=== PATIENT | female | born 1965 | race African-American/Black ===

== ENCOUNTER 2016-12-15 12:01 | Emergency (ER) | payer BC ==
[~2016-12-15] VITALS: Ht 162.6 cm; Wt 52.2 kg
--- NOTE | 2016-12-15 15:21 | PHYS DOC ---
Past Medical History Past Medical History: No Pertinent History Past Surgical History: No Surgical History Additional Information: 2-3 Black & Milds/day. Alcohol Use: None Drug Use: None Adult General Chief Complaint Chief Complaint: FLANK PAIN HPI HPI Patient is a 51 year old female who presents emergency Department today with complaint of nonradiating, left mid back pain that began yesterday. 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 She denies any distinct episode of injury. Patient reports that lifting and twisting her upper body increases the pain. She states that she has no pain when she is at rest. Patient denies history of musculoskeletal disease. Patient denies dysuria or hematuria. She reports that she has had some increasing urinary frequency. She denies fevers, chills, nausea or vomiting. She denies abdominal or pelvic pain. Review of Systems Review of Systems Constitutional: Denies fever or chills [] Eyes: Denies change in visual acuity, redness, or eye pain [] HENT: Denies nasal congestion or sore throat [] Respiratory: Denies cough or shortness of breath [] Cardiovascular: No additional information not addressed in HPI [] GI: Denies abdominal pain, nausea, vomiting, bloody stools or diarrhea [] : Denies dysuria or hematuria [] Musculoskeletal: Denies back pain or joint pain [] Integument: Denies rash or skin lesions [] Neurologic: Denies headache, focal weakness or sensory changes [] Endocrine: Denies polyuria or polydipsia [] Current Medications Current Medications Current Medications Medications (Trade) Dose Ordered [facility] Start Time Stop Time Status Last Admin Dose Admin Ketorolac Tromethamine (Toradol Im) 60 mg 1X ONCE 12/15/16 15:30 12/15/16 15:31 PR Allergies Allergies Allergies Coded Allergies Type Severity Reaction Last Updated Verified No Known Drug Allergies 08/03/14 No Physical Exam Physical Exam Constitutional: Well developed, well nourished, no acute distress, non-toxic appearance. [] HENT: Normocephalic, atraumatic, bilateral external ears normal, oropharynx moist, no oral exudates, nose normal. [] Eyes: PERRLA, EOMI, conjunctiva normal, no discharge. [] Neck: Normal range of motion, no tenderness, supple, no stridor. [] Cardiovascular:Heart rate regular rhythm, no murmur [] Lungs & Thorax: Bilateral breath sounds clear to auscultation [] Abdomen: Bowel sounds normal, soft, no tenderness, no masses, no pulsatile masses. [] Skin: Warm, dry, no erythema, no rash. Back: Patient's back is normal in appearance. There is no CVA tenderness. There are no skin lesions. There is tenderness to palpation to the left lateral mid back at the level of T10-L1 without any palpable defect, deformity or spasm. There is no midline tenderness. Extremities: No tenderness, no cyanosis, no clubbing, ROM intact, no edema. [] Neurologic: Alert and oriented X 3, normal motor function, normal sensory function, no focal deficits noted. [] Psychologic: Affect normal, judgement normal, mood normal. [] Current Patient Data Vital Signs Vital Signs Date Time Temp Pulse Resp B/P Pulse Ox O2 Delivery O2 Flow Rate FiO2 12/15/16 13:40 98.3 79 20 100 Room Air 98.3 Lab Values Laboratory Tests Test 12/15/16 13:30 Urine Collection Type Void Urine Color Yellow Urine Clarity Clear Urine pH 6.0 Urine Specific [place] 1.025 Urine Protein Negativemg/dL (NEG-TRACE) Urine Glucose (UA) Negativemg/dL (NEG) Urine Ketones (Stick) Negativemg/dL (NEG) Urine Blood Negative (NEG) Urine Nitrite Negative (NEG) Urine Bilirubin Negative (NEG) Urine Urobilinogen Dipstick 1.0mg/dL (0.2 mg/dL) Urine Leukocyte Esterase Negative (NEG) Urine RBC 0/HPF (0-2) Urine WBC Occ/HPF (0-4) Urine Squamous Epithelial Cells Few/LPF Urine Bacteria Few/HPF (0-FEW) Urine Mucus Marked/LPF EKG EKG [] Radiology/Procedures Radiology/Procedures [] Course & Med Decision Making Course & Med Decision Making Pertinent Labs and Imaging studies reviewed. (See chart for details) [] Dragon Disclaimer Dragon Disclaimer This electronic medical record was generated, in whole or in part, using a voice recognition dictation system. Departure Departure Impression: Primary Impression: Thoracic myofascial strain Disposition: HOME, SELF-CARE Condition: GOOD Referrals: STANLEY KELLER MD (PCP) Patient Instructions: Thoracic Strain, [id number] Additional Instructions: 1. Your urine test today shows no evidence of infection or blood in your urine. 2. Review the discharge paperwork for home care and reasons to return the emergency department. 3. Take the medication as prescribed. 4. Follow-up with your primary care doctor within 5-7 days. Scripts Orphenadrine Citrate 100 Mg Tablet.er100 Mg PO every 12 hours muscle relaxer # 14 Prov:HERMELINDA TANG 12/15/16 Hydrocodone/Apap 5-325 ([place] 5-325 Tablet)1 Each Tablet1 Tab PO PRN Q6HRS PRN PAIN #10 TAB Prov:HERMELINDA TANG 12/15/16 HERMELINDA TANG Dec 15, 2016 15:20
[2016-12-15 15:29] LABS: BILIRUBIN,URINE NEGATIVE (NEG); GLUCOSE,URINE NEGATIVE (NEG); NITRITE,URINE NEGATIVE (NEG); PROTEIN,URINE NEGATIVE (NEG-TRACE)
[2016-12-15] MEDS ORDERED: KETOROLAC TROMETHAMINE 60 MG/2 ML SYRINGE. IM ONE (15:30)
[2016-12-15 15:40] VITALS: BP 120/69
[2016-12-15 15:44] LABS: RBC,URINE 0 /HPF (0-2); WBC,URINE OCC /HPF (0-4)
[2016-12-15 15:45] LABS: BACTERIA,URINE FEW /HPF (0-FEW); SQUAMOUS EPITHELIAL CELL,UR FEW /LPF
[2016-12-15] MEDS ORDERED: HYDR-971 PO (15:49)
[2016-12-15] MEDS ORDERED: ORPH100T PO (15:49)
== END 2016-12-15 16:16 | disposition home or self-care (01) ==
LOC: ER 12:01
DX: S29.012A Strain of muscle and tendon of back wall of thorax, initial encounter (principal); F17.200 Nicotine dependence, unspecified, uncomplicated; X58.XXXA Exposure to other specified factors, initial encounter; Y93.89 Activity, other specified; Y99.8 Other external cause status; Y92.89 Other specified places as the place of occurrence of the external cause
CPT/HCPCS: 81001; 96372; 99283; J1885

== ENCOUNTER 2017-08-07 11:20 | Emergency (ER) | payer BC ==
[~2017-08-07] VITALS: Ht 165.1 cm; Wt 59.0 kg
[~2017-08-07 11:20] MED LIST: HYDR-971 PO; ORPH100T PO
[2017-08-07 12:00] VITALS: BP 113/76
[2017-08-07] MEDS ORDERED: METH4TAB2 PO (12:10)
[2017-08-07] MEDS ORDERED: TRAM50TA PO (12:10)
--- NOTE | 2017-08-07 12:10 | PHYS DOC ---
Past Medical History Past Medical History: No Pertinent History Past Surgical History: No Surgical History Alcohol Use: None Drug Use: None Adult General Chief Complaint Chief Complaint: BACK PAIN - NO INJURY [facility] HPI Patient is a 52 year old female presents the ED complaining of right back pain that radiates down right leg times one day. States the pain started after sitting in religion. Describes the pain as sharp. Rates the pain as 6 out of 10. Denies any trauma, abdominal pain, dysuria, flank pain, hematuria, chest pain, shortness of breath, fever or weakness. Review of Systems Review of Systems Constitutional: Denies fever or chills [] Eyes: Denies change in visual acuity, redness, or eye pain [] HENT: Denies nasal congestion or sore throat [] Respiratory: Denies cough or shortness of breath [] Cardiovascular: No additional information not addressed in HPI [] GI: Denies abdominal pain, nausea, vomiting, bloody stools or diarrhea [] : Denies dysuria or hematuria [] Musculoskeletal: Complain of back pain. Denies joint pain [] Integument: Denies rash or skin lesions [] Neurologic: Denies headache, focal weakness or sensory changes [] Endocrine: Denies polyuria or polydipsia [] Allergies Allergies Allergies Coded Allergies Type Severity Reaction Last Updated Verified No Known Drug Allergies 08/03/14 No Physical Exam Physical Exam Constitutional: Well developed, well nourished, no acute distress, non-toxic appearance. [] HENT: Normocephalic, atraumatic, bilateral external ears normal, oropharynx moist, no oral exudates, nose normal. [] Eyes: PERRLA, EOMI, conjunctiva normal, no discharge. [] Neck: Normal range of motion, no tenderness, supple, no stridor. [] Cardiovascular:Heart rate regular rhythm, no murmur [] Lungs & Thorax: Bilateral breath sounds clear to auscultation [] Abdomen: Bowel sounds normal, soft, no tenderness, no masses, no pulsatile masses. [] Skin: Warm, dry, no erythema, no rash. [] Back: No tenderness, no CVA tenderness. BACK PAIN RADIATES DOWN RIGHT LEG IN SCIATIC NERVE DISTRIBUTION. [] Extremities: No tenderness, no cyanosis, no clubbing, ROM intact, no edema. [] Neurologic: Alert and oriented X 3, normal motor function, normal sensory function, no focal deficits noted. [] Psychologic: Affect normal, judgement normal, mood normal. [] Current Patient Data Vital Signs Vital Signs Date Time Temp Pulse Resp B/P (MAP) Pulse Ox O2 Delivery O2 Flow Rate FiO2 08/07/17 12:00 97.4 90 18 99 Room Air 97.4 EKG EKG [] Radiology/Procedures Radiology/Procedures No trauma or bony tenderness. Pain radiates down right leg and sciatic nerve distribution. No imaging required. Patient able to ambulate without pain. Discussed follow-up with orthopedics. Discussed reasons to return to the ED. Patient understands and agrees with plan.[] Course & Med Decision Making Course & Med Decision Making Pertinent Labs and Imaging studies reviewed. (See chart for details) [] Dragon Disclaimer Dragon Disclaimer This electronic medical record was generated, in whole or in part, using a voice recognition dictation system. Departure Departure Impression: Primary Impression: Sciatic leg pain Disposition: HOME, SELF-CARE Condition: STABLE Referrals: STANLEY KELLER MD (PCP) Patient Instructions: Sciatica Scripts Tramadol Hcl (TRAMADOL HCL) 50 Mg Tablet 1 TAB PO TID, #8 TAB Prov: CRISTINA LARSON 08/07/17 Methylprednisolone (MEDROL) 4 Mg Tab.ds.pk 1 PKG PO UD, #1 PKG Prov: CRISTINA LARSON 08/07/17 CRISTINA LARSON Aug 07, 2017 12:10
== END 2017-08-07 12:17 | disposition home or self-care (01) ==
LOC: ER 11:20
DX: M54.41 Lumbago with sciatica, right side (principal)
CPT/HCPCS: 99283

== ENCOUNTER 2018-06-18 15:49 | Emergency (ER) | payer BC ==
[~2018-06-18] VITALS: Ht 165.1 cm; Wt 61.2 kg
[~2018-06-18 15:49] MED LIST changes: +METH4TAB2 PO; +TRAM50TA PO
[2018-06-18 16:15] VITALS: BP 126/59
[2018-06-18 18:18] LABS: BILIRUBIN,URINE NEGATIVE (NEG); CLARITY,URINE CLEAR; COLOR,URINE YELLOW; NITRITE,URINE NEGATIVE (NEG); PROTEIN,URINE NEGATIVE (NEG-TRACE)
[2018-06-18 18:30] LABS: BACTERIA,URINE FEW /HPF (0-FEW); RBC,URINE OCC /HPF (0-2); SQUAMOUS EPITHELIAL CELL,UR MANY /LPF
[2018-06-18 18:31] LABS: TRICHOMONAS,URINE PRESENT
[2018-06-18] MEDS ORDERED: SULF1TAB24 PO (18:43)
[2018-06-18] MEDS ORDERED: HYDR28.311 RC (18:43)
--- NOTE | 2018-06-18 18:44 | PHYS DOC ---
Past Medical History Past Medical History: No Pertinent History Past Surgical History: No Surgical History Alcohol Use: None Drug Use: None Adult General Chief Complaint Chief Complaint: URINARY FREQUENCY HPI HPI Patient is a 52 year old [f__sex] who presents with [] Review of Systems Review of Systems Constitutional: Denies fever or chills [] Eyes: Denies change in visual acuity, redness, or eye pain [] HENT: Denies nasal congestion or sore throat [] Respiratory: Denies cough or shortness of breath [] Cardiovascular: No additional information not addressed in HPI [] GI: Denies abdominal pain, nausea, vomiting, bloody stools or diarrhea [] : Denies dysuria or hematuria [] Musculoskeletal: Denies back pain or joint pain [] Integument: Denies rash or skin lesions [] Neurologic: Denies headache, focal weakness or sensory changes [] Endocrine: Denies polyuria or polydipsia [] All other systems were reviewed and found to be within normal limits, except as documented in this note. Allergies Allergies Allergies Coded Allergies Type Severity Reaction Last Updated Verified No Known Drug Allergies 08/03/14 No Physical Exam Physical Exam Constitutional: Well developed, well nourished, no acute distress, non-toxic appearance. [] HENT: Normocephalic, atraumatic, bilateral external ears normal, oropharynx moist, no oral exudates, nose normal. [] Eyes: PERRLA, EOMI, conjunctiva normal, no discharge. [] Neck: Normal range of motion, no tenderness, supple, no stridor. [] Cardiovascular:Heart rate regular rhythm, no murmur [] Lungs & Thorax: Bilateral breath sounds clear to auscultation [] Abdomen: Bowel sounds normal, soft, no tenderness, no masses, no pulsatile masses. [] Skin: Warm, dry, no erythema, no rash. [] Back: No tenderness, no CVA tenderness. [] Extremities: No tenderness, no cyanosis, no clubbing, ROM intact, no edema. [] Neurologic: Alert and oriented X 3, normal motor function, normal sensory function, no focal deficits noted. [] Psychologic: Affect normal, judgement normal, mood normal. [] Current Patient Data Vital Signs Vital Signs Date Time Temp Pulse Resp B/P (MAP) Pulse Ox O2 Delivery O2 Flow Rate FiO2 06/18/18 16:15 98.9 73 16 126/59 (81) 100 Room Air 98.9 Lab Values Laboratory Tests Test 06/18/18 17:56 Urine Collection Type Unknown Urine Color Yellow Urine Clarity Clear Urine pH 6.0 Urine Specific [place] >=1.030 Urine Protein Negative mg/dL (NEG-TRACE) Urine Glucose (UA) Negative mg/dL (NEG) Urine Ketones (Stick) Negative mg/dL (NEG) Urine Blood Negative (NEG) Urine Nitrite Negative (NEG) Urine Bilirubin Negative (NEG) Urine Urobilinogen Dipstick 1.0 mg/dL (0.2 mg/dL) Urine Leukocyte Esterase Small (NEG) Urine RBC Occ /HPF (0-2) Urine WBC 5-10 /HPF (0-4) Urine Squamous Epithelial Cells Many /LPF Urine Bacteria Few /HPF (0-FEW) Urine Mucus Marked /LPF Urine Trichomonas Present EKG EKG [] Radiology/Procedures Radiology/Procedures [] Course & Med Decision Making Course & Med Decision Making Pertinent Labs and Imaging studies reviewed. (See chart for details) [] Dragon Disclaimer Dragon Disclaimer This electronic medical record was generated, in whole or in part, using a voice recognition dictation system. Departure Departure Impression: Primary Impression: Hemorrhoid Additional Impression: UTI (lower urinary tract infection) Disposition: 01 HOME, SELF-CARE Condition: STABLE Referrals: STANLEY KELLER MD (PCP) Patient Instructions: Hemorrhoids, Urinary Tract Infection Additional Instructions: Take the medications as directed. Follow-up with your primary care provider in one week if not improving or return to the emergency department if worsening. Scripts Hydrocortisone (PROCTOSOL-HC) 28.35 Gm Cream..g. 1 NICHOLE RC BID, #28.35 GM Prov: LILY ZUÑIGA APRN 06/18/18 Sulfamethoxazole/Trimethoprim (BACTRIM DS TABLET) 1 Each Tablet 1 TAB PO BID, #14 TAB Prov: LILY ZUÑIGA APRN 06/18/18 Problem Qualifiers LILY ZUÑIGA APRN Jun 18, 2018 18:44
== END 2018-06-18 19:02 | disposition home or self-care (01) ==
LOC: ER 15:49
DX: N39.0 Urinary tract infection, site not specified (principal); K64.9 Unspecified hemorrhoids
CPT/HCPCS: 81001; 87086; 99284

== ENCOUNTER 2018-08-31 19:40 | Emergency (ER) | payer BC ==
[~2018-08-31] VITALS: Ht 175.3 cm; Wt 61.2 kg
[~2018-08-31 19:40] MED LIST changes: +HYDR28.311 RC; +SULF1TAB24 PO
[2018-08-31] MEDS ORDERED: PRED50TA PO (20:46)
[2018-08-31] MEDS ORDERED: HYDR-971 PO (20:47)
--- NOTE | 2018-08-31 20:47 | PHYS DOC ---
Past Medical History Past Medical History: No Pertinent History Past Surgical History: No Surgical History Alcohol Use: None Drug Use: None Adult General Chief Complaint Chief Complaint: BACK PAIN - NO INJURY HPI HPI Patient is a 53 year old female who presents with right lower back pain that is sharp and shooting down her right leg since today. Patient states she has not taken any pain medications. Patient rates pain a 10 out of 10. Patient states it is hard to walk or sit or stand. Patient states she takes no medications daily, has no past medical history, and has had no surgeries. Patient is not allergic to any medications. Review of Systems Review of Systems Constitutional: Denies fever or chills [] Eyes: Denies change in visual acuity, redness, or eye pain [] HENT: Denies nasal congestion or sore throat [] Respiratory: Denies cough or shortness of breath [] Cardiovascular: No additional information not addressed in HPI [] GI: Denies abdominal pain, nausea, vomiting, bloody stools or diarrhea [] : Denies dysuria or hematuria [] Musculoskeletal: Low back pain that radiates down right leg or joint pain [] Integument: Denies rash or skin lesions [] Neurologic: Denies headache, focal weakness or sensory changes [] Endocrine: Denies polyuria or polydipsia [] All other systems were reviewed and found to be within normal limits, except as documented in this note. Current Medications Current Medications Current Medications Medications (Trade) Dose Ordered [facility] Start Time Stop Time Status Last Admin Dose Admin Acetaminophen/ Hydrocodone Bitart (Lortab 5/325) 1 tab 1X ONCE 08/31/18 21:00 08/31/18 21:01 DC 08/31/18 20:52 1 TAB Ibuprofen (Motrin) 600 mg 1X ONCE 08/31/18 21:00 08/31/18 21:01 DC 08/31/18 20:53 600 MG Prednisone (Prednisone) 50 mg 1X ONCE 08/31/18 21:00 08/31/18 21:01 DC 08/31/18 20:53 40 MG Allergies Allergies Allergies Coded Allergies Type Severity Reaction Last Updated Verified No Known Drug Allergies 08/03/14 No Physical Exam Physical Exam Constitutional: Well developed, well nourished, no acute distress, non-toxic appearance. [] HENT: Normocephalic, atraumatic, bilateral external ears normal, oropharynx moist, no oral exudates, nose normal. [] Eyes: PERRLA, EOMI, conjunctiva normal, no discharge. [] Neck: Normal range of motion, no tenderness, supple, no stridor. [] Cardiovascular:Heart rate regular rhythm, no murmur [] Lungs & Thorax: Bilateral breath sounds clear to auscultation [] Abdomen: Bowel sounds normal, soft, no tenderness, no masses, no pulsatile masses. [] Skin: Warm, dry, no erythema, no rash. [] Back: No tenderness, no CVA tenderness. [] Extremities: No tenderness, no cyanosis, no clubbing, ROM intact, no edema. [] Neurologic: Alert and oriented X 3, normal motor function, normal sensory function, no focal deficits noted. [] Psychologic: Affect normal, judgement normal, mood normal. [] Current Patient Data Vital Signs Vital Signs Date Time Temp Pulse Resp B/P (MAP) Pulse Ox O2 Delivery O2 Flow Rate FiO2 08/31/18 20:56 98.1 76 18 125/70 (88) 100 Room Air 98.1 EKG EKG [] Radiology/Procedures Radiology/Procedures [] Course & Med Decision Making Course & Med Decision Making Patient is a 53 year old female who presents with right lower back pain that is sharp and shooting down her right leg since today. Patient states she has not taken any pain medications. Patient rates pain a 10 out of 10. Patient states it is hard to walk or sit or stand. Patient states she takes no medications daily, has no past medical history, and has had no surgeries. Patient is not allergic to any medications. Patient has no extremity edema. Bilateral pedal pulses are present. Patient denies any numbness, weakness or tingling. Patient is diagnosed with sciatica and is to follow-up with her primary care. Gave her dose of prednisone in the ED and ibuprofen. Patient is sent home with 4 more days of prednisone and [place] and also take ibuprofen. Patient should follow up with her primary care. [] Dragon Disclaimer Dragon Disclaimer This electronic medical record was generated, in whole or in part, using a voice recognition dictation system. Departure Departure Impression: Primary Impression: Low back pain on right side with sciatica Disposition: HOME, SELF-CARE Condition: STABLE Referrals: STANLEY KELLER MD (PCP) Patient Instructions: Sciatica Additional Instructions: Follow-up with her primary care on Monday. Take medications as prescribed. Scripts Hydrocodone/Apap 5-325 ([place] 5-325 TABLET) 1 Each Tablet 1 TAB PO PRN Q6HRS PRN for PAIN, #8 TAB 0 Refills Prov: TAVO PARDO APRN 08/31/18 Prednisone (PREDNISONE) 50 Mg Tablet 1 TAB PO DAILY, #4 TAB Prov: TAVO PARDO APRN 08/31/18 TAVO PARDO APRN Aug 31, 2018 20:47
[2018-08-31 20:56] VITALS: BP 125/70
[2018-08-31] MEDS ORDERED: IBUPROFEN 600 MG TABLET. PO ONE (21:00)
[2018-08-31] MEDS ORDERED: predniSONE 20 MG TABLET PO ONE (21:00)
[2018-08-31] MEDS ORDERED: HYDROcodone/APAP 5/325MG 1 TAB TABLET PO ONE (21:00)
== END 2018-08-31 20:53 | disposition home or self-care (01) ==
LOC: ER 19:40
DX: M54.41 Lumbago with sciatica, right side (principal)
CPT/HCPCS: 99284; J7512

== ENCOUNTER 2018-10-27 21:09 | Emergency (ER) | payer BC ==
[~2018-10-27] VITALS: Ht 162.6 cm; Wt 72.6 kg
[~2018-10-27 21:09] MED LIST changes: +HYDR-3164 PO; -HYDR-971 PO; +PRED50TA PO; +levETIRAcetam 1,000 MG in IV DEXTROSE 5% 100ML 100 ML IV ONE
[2018-10-27 21:40] LABS: BASO # 0.1 x10^3/uL (0.0-0.2); BASO % 0 % (0-3); EOS % 0 % (0-3); HEMOGLOBIN 13.6 g/dL (12.0-15.5); LYMPH # 0.7 x10^3/uL (1.0-4.8); LYMPH % 4 % (24-48); MEAN CORPUSCULAR HEMOGLOBIN 34 pg (25-35); MEAN CORPUSCULAR HGB CONC 34 g/dL (31-37); MEAN CORPUSCULAR VOLUME 98 fL (79-100); MONO # 0.8 x10^3/uL (0.0-1.1); MONO % 5 % (0-9); NEUT # 15.2 x10^3uL (1.8-7.7); NEUT % 90 % (31-73); PLATELET COUNT 217 x10^3/uL (140-400); RED BLOOD COUNT 4.07 x10^6/uL (3.50-5.40); RED CELL DISTRIBUTION WIDTH 12.9 % (11.5-14.5); WHITE BLOOD COUNT 16.9 x10^3/uL (4.0-11.0)
--- NOTE | 2018-10-27 21:41 | PHYS DOC ---
Past Medical History Past Medical History: No Pertinent History Past Surgical History: No Surgical History Alcohol Use: None Drug Use: None Adult General Chief Complaint Chief Complaint: ALTERED MENTAL STATUS HPI HPI Patient is a 53 year old [place] female presents with altered mental status after being found unresponsive in a bathtub covered in feces. Last known normal was approximately 4 hours prior to ED arrival. Patient was found by significant other who contacted EMS. On EMS arrival, patient was unresponsive other than to tactile stimulation. Vital signs are stable, blood sugar was normal. Intranasal Narcan was given with increased agitation. Reportedly, she been complaining of abdominal pain and constipation earlier in the day. History is limited due to the patient's presentation and mental status state. On ED arrival, the patient has alert and agitated with incomprehensible sounds and nonverbal. She is able to move all 4 extremities and prefers to lie in the prone position. [] Review of Systems Review of Systems Review of symptoms limited based upon patient's mental status. Current Medications Current Medications Current Medications Medications (Trade) Dose Ordered Sig/Janna Start Time Stop Time Status Last Admin Dose Admin Ceftriaxone Sodium (Rocephin) 1 gm 1X ONCE 10/27/18 22:30 10/27/18 22:31 DC 10/27/18 22:10 1 GM Info (CONTRAST GIVEN -- Rx MONITORING) 1 each PRN DAILY PRN 10/27/18 22:30 10/29/18 22:29 Iohexol (Omnipaque 300 Mg/ml) 75 ml 1X ONCE 10/27/18 23:00 10/27/18 23:01 DC 10/27/18 22:44 75 ML Levetiracetam 1000 mg/Dextrose 110 ml @ 440 mls/hr 1X ONCE 10/27/18 23:45 10/27/18 23:59 DC Ondansetron HCl (Zofran) 8 mg 1X ONCE 10/27/18 21:30 10/27/18 21:31 DC 10/27/18 22:10 8 MG Potassium Chloride/Sodium Chloride 1,000 ml @ 250 mls/hr Q4H 10/27/18 23:45 10/28/18 03:44 Propofol 50 ml @ As Directed STK-MED ONCE 10/28/18 00:17 10/28/18 00:19 DC Sodium Chloride 1,000 ml @ 1,000 mls/hr 1X ONCE 10/27/18 21:30 10/27/18 22:29 DC 10/27/18 22:10 1,000 MLS/HR Allergies Allergies Allergies Coded Allergies Type Severity Reaction Last Updated Verified No Known Drug Allergies 08/03/14 No Physical Exam Physical Exam Constitutional: Agitated, does not follow verbal commands. [] HENT: Normocephalic, atraumatic, bilateral external ears normal, oropharynx moist, no oral exudates, nose normal. [] Eyes: PERRLA, nystagmus[] Neck: Normal range of motion, no tenderness, supple, no stridor. [] Cardiovascular:Heart rate regular rhythm, no murmur [] Lungs & Thorax: Bilateral breath sounds clear to auscultation [] Abdomen: Bowel sounds normal, soft, no tenderness, [] Skin: Warm, dry, skin color appropriate for ethnicity.[] Extremities: No tenderness, no edema. [] Neurologic: Agitated, moves all 4 extremities, but does not follow commands. GCS 9.[] Current Patient Data Vital Signs Vital Signs Date Time Temp Pulse Resp B/P (MAP) Pulse Ox O2 Delivery O2 Flow Rate FiO2 10/27/18 21:09 97.7 53 14 140/78 (98) 91 Room Air 97.7 Lab Values Laboratory Tests Test 10/27/18 21:25 10/27/18 21:30 10/27/18 21:34 10/27/18 21:35 White Blood Count 16.9 x10^3/uL (4.0-11.0) H Red Blood Count 4.07 x10^6/uL (3.50-5.40) Hemoglobin 13.6 g/dL (12.0-15.5) Hematocrit 40.0 % (36.0-47.0) Mean Corpuscular Volume 98 fL (79-100) Mean Corpuscular Hemoglobin 34 pg (25-35) Mean Corpuscular Hemoglobin Concent 34 g/dL (31-37) Red Cell Distribution Width 12.9 % (11.5-14.5) Platelet Count 217 x10^3/uL (140-400) Neutrophils (%) (Auto) 90 % (31-73) H Lymphocytes (%) (Auto) 4 % (24-48) L Monocytes (%) (Auto) 5 % (0-9) Eosinophils (%) (Auto) 0 % (0-3) Basophils (%) (Auto) 0 % (0-3) Neutrophils # (Auto) 15.2 x10^3uL (1.8-7.7) H Lymphocytes # (Auto) 0.7 x10^3/uL (1.0-4.8) L Monocytes # (Auto) 0.8 x10^3/uL (0.0-1.1) Eosinophils # (Auto) 0.0 x10^3/uL (0.0-0.7) Basophils # (Auto) 0.1 x10^3/uL (0.0-0.2) Segmented Neutrophils % 80 % (35-66) H Band Neutrophils % 10 % (0-9) H Lymphocytes % 5 % (24-48) L Atypical Lymphocytes % (Manual) 2 % (0-0) H Monocytes % 3 % (0-10) Platelet Estimate Adequate (ADEQUATE) Sodium Level 142 mmol/L (136-145) Potassium Level 2.7 mmol/L (3.5-5.1) *L Chloride Level 105 mmol/L (98-107) Carbon Dioxide Level 23 mmol/L (21-32) Anion Gap 14 (6-14) Blood Urea Nitrogen 20 mg/dL (7-20) Creatinine 0.8 mg/dL (0.6-1.0) Estimated GFR (Cockcroft-Gault) 91.1 BUN/Creatinine Ratio 25 (6-20) H Glucose Level 186 mg/dL (70-99) H Calcium Level 9.3 mg/dL (8.5-10.1) Total Bilirubin 0.4 mg/dL (0.2-1.0) Aspartate Amino Transferase (AST) 38 U/L (15-37) H Alanine Aminotransferase (ALT) 38 U/L (14-59) Alkaline Phosphatase 58 U/L (46-116) Total Protein 8.2 g/dL (6.4-8.2) Albumin 4.0 g/dL (3.4-5.0) Albumin/Globulin Ratio 1.0 (1.0-1.7) Lipase 139 U/L (73-393) Thyroid Stimulating Hormone (TSH) 1.428 uIU/mL (0.358-3.74) Serum Test, Qualitative Negative (NEG) Ethyl Alcohol Level < 10 mg/dL (0-10) Urine Collection Type Unknown Urine Color Yellow Urine Clarity Turbid Urine pH 5.5 Urine Specific [place] 1.025 Urine Protein 100 mg/dL (NEG-TRACE) Urine Glucose (UA) 100 mg/dL (NEG) Urine Ketones (Stick) Negative mg/dL (NEG) Urine Blood Moderate (NEG) Urine Nitrite Negative (NEG) Urine Bilirubin Negative (NEG) Urine Urobilinogen Dipstick 0.2 mg/dL (0.2 mg/dL) Urine Leukocyte Esterase Trace (NEG) Urine RBC 3-5 /HPF (0-2) Urine WBC 5-10 /HPF (0-4) Urine Squamous Epithelial Cells Many /LPF Urine Bacteria Moderate /HPF (0-FEW) Urine Mucus Marked /LPF Urine Trichomonas Present Urine Opiates Screen Neg (NEG) Urine Methadone Screen Neg (NEG) Urine Barbiturates Neg (NEG) Urine Phencyclidine Screen Neg (NEG) Urine Amphetamine/Methamphetamine Neg (NEG) Urine Benzodiazepines Screen Neg (NEG) Urine Cocaine Screen Neg (NEG) Urine Cannabinoids Screen Pos (NEG) Urine Ethyl Alcohol Neg (NEG) POC Urine HCG, Qualitative Hcg negative (Negative) Prothrombin Time 14.1 SEC (11.7-14.0) H Prothrombin Time INR 1.1 (0.8-1.1) PTT 28 SEC (24-38) Test 10/27/18 21:50 O2 Saturation 93 % (92-99) Arterial Blood pH 7.38 (7.35-7.45) Arterial Blood pCO2 at Patient Temp 34 mmHg (35-46) L Arterial Blood pO2 at Patient Temp 69 mmHg (75-108) L Arterial Blood HCO3 20 mmol/L (21-28) L Arterial Blood Base Excess -5 mmol/L (-3-3) L FiO2 21 Laboratory Tests 10/27/18 21:25 Laboratory Tests 10/27/18 21:25 EKG EKG [EKG: Reviewed] Radiology/Procedures Radiology/Procedures [CT head: Subarachnoid blood distributed in the basilar cisterns of the frontal lobes, no intraparenchymal is seen. A small amount of blood is present in the ventricles per radiology report.] Rapid sequence intubation procedure note: Indication: need for airway protection Consent: Presumed consent due to emergent condition Anesthesia used: 160 mg of propofol, 160 mg of succinylcholine Performing physician: Dr. Rob Bledsoe The patient was connected currently cardiovascular pulse oximeter monitors. Respiratory therapy was at bedside patient was placed on a nonrebreather. After airway equipment was set up and anesthesia was administered, a video laryngoscope was used to attempt intubation. However, due to high anterior location of the records, this was unsuccessful. The patient had a brief desaturation into the upper 60s. The patient was given assisted may no positive pressure ventilation by bag mask. After the patient's O2 saturations recovered to 100%, anesthesia was readministered and the patient was positioned and was successfully intubated with 7.5 mm endotracheal tube. Patient tolerated procedure well. Postintubation chest x-ray is ordered and is pending. Course & Med Decision Making Course & Med Decision Making Pertinent Labs and Imaging studies reviewed. (See chart for details) [Patient with findings of subarachnoid hemorrhage suggestive of ruptured aneurysm. Patient's initial GCS of 9 with deterioration to GCS of 6. Patient intubated. IV Keppra given, potassium replaced. Patient will be transferred emergently to [facility] for consideration of acute neuro intervention. Dr. haung accepts to the emergency department. Patient intubated for airway protection prior to departure.] Dragon Disclaimer Dragon Disclaimer This electronic medical record was generated, in whole or in part, using a voice recognition dictation system. Departure Departure Impression: Primary Impression: Acute spontaneous subarachnoid intracranial hemorrhage Additional Impression: Hypokalemia Disposition: 02 TRANSFER [facility] Condition: GUARDED Referrals: STANLEY KELLER MD (PCP) Problem Qualifiers ROB BLEDSOE DO Oct 27, 2018 21:41
[2018-10-27 21:43] LABS: BILIRUBIN,URINE NEGATIVE (NEG); CLARITY,URINE TURBID; COLOR,URINE YELLOW; NITRITE,URINE NEGATIVE (NEG); PH,URINE 5.5; PROTEIN,URINE 100 mg/dL (NEG-TRACE); UROBILINOGEN,URINE 0.2 mg/dL (0.2 mg/dL)
[2018-10-27 21:48] LABS: AMPHETAMINE/METHAMPHETAMINE NEG (NEG); BARBITURATES NEG (NEG); BENZODIAZEPINES NEG (NEG); CANNABINOIDS POS (NEG); COCAINE NEG (NEG); METHADONE NEG (NEG); OPIATES NEG (NEG); PHENCYCLIDINE NEG (NEG)
[2018-10-27 21:49] LABS: PREG TEST PT QUAL NEGATIVE (NEG)
[2018-10-27 21:51] LABS: BACTERIA,URINE MODERATE /HPF (0-FEW); SQUAMOUS EPITHELIAL CELL,UR MANY /LPF; TRICHOMONAS,URINE PRESENT
[2018-10-27 21:52] LABS: BASE EXCESS ABG -5 mmol/L (-3-3); HCO3 ABG 20 mmol/L (21-28); PCO2 ABG 34 mmHg (35-46); PO2 ABG 69 mmHg (75-108); SAT O2 ABG 93 % (92-99)
[2018-10-27 21:56] LABS: % ATYL 2 % (0-0); % BANDS 10 % (0-9); % LYMPHS 5 % (24-48); % MONOS 3 % (0-10); % SEGS 80 % (35-66); PLT ESTIMATE ADEQUATE (ADEQUATE)
[2018-10-27 21:57] LABS: CALCIUM 9.3 mg/dL (8.5-10.1); CREATININE 0.8 mg/dL (0.6-1.0); GFR 91.1; TOTAL BILIRUBIN 0.4 mg/dL (0.2-1.0); TOTAL PROTEIN 8.2 g/dL (6.4-8.2)
[2018-10-27 21:59] LABS: FIO2 ABG 21
[2018-10-27 21:59] LABS: POTASSIUM 2.7 mmol/L (3.5-5.1)
[2018-10-27] MEDS: ONDANSETRON PF 4 MG/2 ML VIAL. IV ONE (22:10)
[2018-10-27] MEDS: IV NORMAL SALINE 1000ML BAG 1,000 ML IV ONE (22:10)
[2018-10-27] MEDS: cefTRIAXone IV Push 1 GM VIAL. IVP ONE (22:10)
[2018-10-27] MEDS ORDERED: CONTRAST GIVEN. MC PRN (22:30)
[2018-10-27] MEDS: IOHEXOL 300 MG/ML 100ML VIAL. IV ONE (22:44)
--- NOTE | 2018-10-27 23:14 | RAD ---
CT head without contrast 10/27/2018. Reason for exam: Mental status change. Noncontrast images were performed. Exposure: One or more of the following individualized dose reduction techniques were utilized for this examination: 1. Automated exposure control 2. Adjustment of the mA and/or kV according to patient size 3. Use of iterative reconstruction technique. Comparison is made with the exam of 10/28/2014. FINDINGS: There is now subarachnoid blood distributed in the basilar cisterns and over especially the frontal lobes. No intraparenchymal hemorrhage is seen. A small amount of blood is visible in the frontal horns of the lateral ventricles. No mass or focal area of abnormal density is identified. The mastoid air cells are clear. There is some fluid in the right maxillary sinus. IMPRESSION: There is fairly extensive subarachnoid hemorrhage and a small amount of intraventricular blood. CT abdomen and pelvis with contrast. Helical CT images were performed using an infusion of 75 mL Omnipaque 300. Exposure: One or more of the following individualized dose reduction techniques were utilized for this examination: 1. Automated exposure control 2. Adjustment of the mA and/or kV according to patient size 3. Use of iterative reconstruction technique. FINDINGS: There are patchy infiltrates in the right middle and lower lobes. There is some respiratory motion artifact through the upper abdomen. The liver and spleen are homogeneous in density and normal in configuration. Both kidneys enhance with contrast. No mass or obstruction is seen. The adrenal glands are not enlarged. There is no apparent pancreatic abnormality. There is no apparent adenopathy or abdominal soft tissue mass. There may be some colonic wall thickening, and mild colitis is possible. Images through the pelvis show no apparent abnormality of the distal ureters or bladder. The bladder was not well-distended. No pelvic or inguinal adenopathy is seen. The uterus appears grossly normal for age. There appears to be a Perez catheter present. This extends toward the left and apparently anteriorly, but is thought to and within a decompressed urinary bladder. No separate pelvic mass or inflammatory process is seen. Graph impression: No definite acute findings. There could be mild colitis, although evaluation of the GI tract is limited by poor distention and lack of oral contrast. Critical results regarding intracranial hemorrhage were relayed to the emergency room at 2308. Electronically signed by: Madhav Self Jr., MD (10/27/2018 11:10 PM) [facility]
[2018-10-27 23:46] LABS: PROTHROMBIN TIME PATIENT 14.1 SEC (11.7-14.0)
[2018-10-28] MEDS ORDERED: PROPOFOL 20 ML IV ONE (00:02)
[2018-10-28] MEDS: PROPOFOL 10 MG/ML (20ML) VIAL. IV ONE ×2 (00:04→00:10)
[2018-10-28] MEDS: SUCCINYLCHOLINE 200 MG/10 ML VIAL. IV ONE ×2 (00:04→00:14)
[2018-10-28] MEDS ORDERED: PROPOFOL 50 ML IV ONE (00:17)
[2018-10-28] MEDS: PROPOFOL 100 ML IV PRN (00:25)
[2018-10-28] MEDS: levETIRAcetam 1,000 MG in IV DEXTROSE 5% 100ML 100 ML IV ONE (00:34)
[2018-10-28] MEDS: POTASSIUM CL 40MEQ IN 0.9%NACL 1,000 ML IV SCH (00:38)
--- NOTE | 2018-10-28 00:49 | RAD ---
Chest AP portable 10/28/2018. Reason for exam: Post intubation. An ETT is present with its tip about 2 cm above the yari. An NG tube reaches the stomach. There are patchy infiltrates throughout the right lung and possibly in the retrocardiac left lower lobe. Heart size is normal. IMPRESSION: Placement of ET and NG without apparent complication. Right-sided infiltrates. Electronically signed by: Madhav Self Jr., MD (10/28/2018 12:45 AM) [facility]
[2018-10-28 01:00] VITALS: BP 120/81
--- NOTE | 2018-10-28 07:59 | EKG ---
[facility] [address] [place] [address] Test Date: 2018-10-27 Test Time: 21:52:33 Pat Name: ZO MENDES Department: Room: Gender: Female Information Security Officer: : 1965 Requested By: THOM WILKERSON Order Number: [id number] Reading MD: José Manuel Masterson Measurements Intervals [place] Rate: 48 P: MS: QRS: 60 QRSD: 88 T: 62 QT: 442 QTc: 398 Interpretive Statements SINUS RHYTHM NO SPECIFIC ECG ABNORMALITIES RI6.01 No previous ECG available for comparison Electronically Signed On 11-07-2018 7:53:23 [employer]ER by José Manuel Masterson
[2018-10-28] MEDS ORDERED: CHLORHEXIDINE 0.12% 15 ML MOUTHWASH. MM SCH (09:00)
--- NOTE | 2018-10-29 09:21 | EKG ---
[facility] [address] [place] [address] Test Date: 2018-10-27 Test Time: 23:01:57 Pat Name: ZO MENDES Department: Room: Gender: F Channel Specialist: : 1965 Requested By: THOM WILKERSON Order Number: [id number] Reading MD: José Manuel Masterson Measurements Intervals [place] Rate: 81 P: -82 [place]: 130 QRS: -154 QRSD: 82 T: -146 QT: 356 QTc: 419 Interpretive Statements SINUS RHYTHM ABNORMAL RIGHT SUPERIOR AXIS DEVIATION QRS(T) CONTOUR ABNORMALITY CONSISTENT WITH INFERIOR INFARCT AGE UNDETERMINED T ABNORMALITY IN HIGH LATERAL LEADS ABNORMAL ECG RI6.01 No previous ECG available for comparison Electronically Signed On 11-07-2018 7:53:46 STYLIST APPRENTICE by José Manuel Masterson
== END 2018-10-28 01:05 | disposition short-term general hospital (02) ==
LOC: ER 21:09
DX: I60.8 Other nontraumatic subarachnoid hemorrhage (principal); E87.6 Hypokalemia; R41.82 Altered mental status, unspecified
CPT/HCPCS: 31500; 36415; 36600; 51702; 70450; 71045; 74177; 80053; 80307; 81001; 81025; 82805; 83690; 84443; 84703; 85007; 85025; 85610; 85730; 87086; 93005; 96361; 96365; 96368; 96375; 99285; G0480; J0330; J0696; J1953; J2405; J2704; J3480; J7030; Q9967; 94002